=== PATIENT | male | born 1940 | race Caucasian/White ===

== ENCOUNTER 2022-08-22 20:16 | Inpatient (IN) | payer MEDICARE, OTHER ==
[~2022-08-22] VITALS: Ht 167.6 cm; Wt 78.5 kg
--- NOTE | 2022-08-22 20:20 | NUR ---
BIBRA39. ALTERED MENTAL STATUS X 30MIN MIXING PLACE SUPERVISOR. NARCAN 4MG NASALLY GIVEN EMS1. PT ON N/C 2LPM SATTING AT 97%. MIXING PLACE SUPERVISOR BS ACCUCHECK [address] SUPERVISOR IV ESTABLISHED BY EMS LFA #20G S/L. SAFETY MEASURES IN PLACE
--- NOTE | 2022-08-22 20:52 | NUR ---
RN UPDATED COURTNEY ([place]) [phone] DR. MEDINA SPEAKING TO COURTNEY
--- NOTE | 2022-08-22 21:13 | NUR ---
LFA #20G S/L BLOOD COLLECTED AND SENT TO LAB
--- NOTE | 2022-08-22 21:14 | NUR ---
PT TAKEN TO CT VIA SV[facility]
--- NOTE | 2022-08-22 21:24 | NUR ---
PT RETURNED TO ER BED [address]
[2022-08-22 21:31] LABS: BASOPHILS # (AUTO) 0.1 K/uL (0.0-0.2); BASOPHILS % (AUTO) 0.9 % (0.0-2.0); EOSINOPHILS % (AUTO) 0.5 % (0.0-6.0); HEMATOCRIT 38 % (39-51); HEMOGLOBIN 12.3 g/dL (13.5-17.5); LYMPHOCYTES # (AUTO) 0.5 K/uL (0.8-4.8); LYMPHOCYTES % (AUTO) 4.2 % (20.0-44.0); MEAN CORPUSCULAR HGB CONC 32 g/dl (31.0-36.0); MEAN CORPUSCULAR VOLUME 95 fL (80-96); MONOCYTES # (AUTO) 1.3 K/uL (0.1-1.30); MONOCYTES % (AUTO) 10.3 % (2.0-12.0); NEUTROPHILS # (AUTO) 10.4 K/uL (1.8-8.9); NEUTROPHILS % (AUTO) 84.1 % (43.0-81.0); RED BLOOD CELL COUNT(AUTO) 4.06 MIL/uL (4.5-6.0); WHITE BLOOD COUNT (AUTO) 12.3 K/uL (4.3-11.0)
--- NOTE | 2022-08-22 21:32 | NUR ---
POC BS ACCUCHECK 41 ;DR ZULEIKA HATFIELD AWARE
[2022-08-22] MEDS ORDERED: ONDANSETRON HCL/PF 4 MG/2 ML VIAL ONE (21:35)
[2022-08-22 21:36] LABS: SERUM AMMONIA 25 umol/L (11-32)
[2022-08-22 21:40] LABS: ALANINE AMINOTRANSFERASE 39 U/L (12-78); ALBUMIN 2.2 g/dL (3.4-5.0); ALKALINE PHOSPHATASE 142 U/L (46-116); ASPARTATE AMINOTRANSFERASE 63 U/L (15-37); BILIRUBIN,DIRECT 0.2 mg/dL (0.0-0.2); BILIRUBIN,TOTAL 0.4 mg/dL (0.2-1.0); CALCIUM, SERUM 7.6 mg/dL (8.5-10.1); CARBON DIOXIDE 30 mmol/L (21-32); CHLORIDE 100 mmol/L (98-107); CREATININE 4.3 mg/dL (0.6-1.3); POTASSIUM 4.6 mmol/L (3.5-5.1); SODIUM SERUM 132 mmol/L (136-145); TOTAL PROTEIN, SERUM 5.6 g/dL (6.4-8.2); UREA NITROGEN, BLOOD 52 mg/dL (7-18)
[2022-08-22 21:43] LABS: PLATELET COUNT (AUTO) 50 K/uL (150-450)
--- NOTE | 2022-08-22 21:43 | NUR ---
PLT 50,000; DR ZULEIKA HATFIELD AWARE
[2022-08-22 21:45] LABS: ACETAMINOPHEN < 10 ug/ml (10-30); ALCOHOL, BLOOD < 3 mg/dL (0-0)
--- NOTE | 2022-08-22 21:47 | NUR ---
VERONICA GRANDDAUGHTER [phone]
[2022-08-22 21:48] LABS: THYROID STIMULATING HORMONE 3.257 uIU/mL (0.358-3.74)
[2022-08-22 21:56] LABS: GLUCOSE 44 mg/dL (74-106)
[2022-08-22] MEDS ORDERED: DEXTROSE 50%-WATER 50 ML DISP.SYRIN ONE (21:57)
[2022-08-22] MEDS ORDERED: DEXTROSE 50%-WATER 50 ML DISP.SYRIN IVP ONE (22:00)
[2022-08-22] MEDS ORDERED: ONDANSETRON HCL/PF - ER 4 MG/2 ML VIAL IV ONE (22:00)
--- NOTE | 2022-08-22 22:04 | NUR ---
EMT AT PT'S BEDSIDE FOR EKG COVID ANTIGEN SWAB COLLECTED AND SENT TO LAB
[2022-08-22] MEDS: BLOOD SUGAR DIAGNOSTIC 1 EACH STRIP IN SCH (22:32)
--- NOTE | 2022-08-22 22:42 | NUR ---
dtr ikn waiting room ITZEL [phone]
--- NOTE | 2022-08-22 22:45 | NUR ---
DR. JADA HATFIELD AT PT'S BEDSIDE FOR EVAL
[2022-08-22] MEDS ORDERED: FUROSEMIDE 40 MG/4 ML VIAL ONE (22:55)
[2022-08-22] MEDS ORDERED: MORPHINE SULFATE INJ 2 MG/ML DISP.SYRIN IV PRN (23:00)
[2022-08-22] MEDS ORDERED: FUROSEMIDE 40 MG/4 ML VIAL IV ONE (23:00)
[2022-08-22] MEDS ORDERED: DEXTROSE 50%-WATER 50 ML DISP.SYRIN IV PRN (23:00)
[2022-08-22] MEDS ORDERED: hydrALAZINE HCL IV 20 MG VIAL IV PRN (23:00)
[2022-08-22] MEDS ORDERED: ONDANSETRON HCL/PF 4 MG/2 ML VIAL IVP PRN (23:00)
--- NOTE | 2022-08-22 23:05 | NUR ---
COVID SWAB SENT TO LAB
--- NOTE | 2022-08-22 23:26 | NUR ---
ATTEMPTED TO INSERT F/C 16, 14, 5FR WITH NO SUCCESS. PT INCONTINENT. NOT ABLE TO COLLECT URINE AT THIS TIME.
--- NOTE | 2022-08-22 23:27 | NUR ---
US TECH AT PT'S BEDSIDE
[2022-08-22 23:48] LABS: LYMPHOCYTES % (MANUAL) 6 % (16-48); NEUTROPHILS % (MANUAL) 80 (42-76)
[2022-08-22 23:49] LABS: BAND % (MANUAL) 4 % (0.0-5.0); BASOPHILS % (MANUAL) 1 % (0.0-2.0); EOSINOPHILS % (MANUAL) 1 % (0-4)
[2022-08-22 23:51] LABS: MONOCYTES % (MANUAL) 8 % (0-11.0)
--- NOTE | 2022-08-23 00:25 | NUR ---
RT AT PT'S BEDSIDE
--- NOTE | 2022-08-23 00:27 | NUR ---
BED 114-2
--- NOTE | 2022-08-23 00:45 | NUR ---
RN NOTES STARTED 1 BAG OF PRBC ORDERED. INITIAL VITAL SIGNS TAKEN AND NOTED TO BE WNL. INFUSED PER PROTOCOL. WILL CONTINUE TO MONITOR AND ASSESS FOR ANY BLOOD TRANSFUSION REACTION AND ADDRESS ACCORDINGLY. MOTEL FRONT DESK CLERK WELL AWARE. Addendum: 08/23/22 at 0441 by ALDA BLEVINS RN PLS DISREGARD ; WRONG PT
--- NOTE | 2022-08-23 00:47 | NUR ---
AWAITING TO GIVE REPORT TO [facility]
--- NOTE | 2022-08-23 00:48 | NUR ---
SPEECH LANG PATH AT PT'S BEDSIDE
--- NOTE | 2022-08-23 01:17 | NUR ---
RN NOTES RECEIVED ER ADMISSION REPORT FROM NINO WOODSON. ALL PERTINENT ADMISSION INFO REGARDING PT NOTED. WILL WAIT FOR PT TO BE TRANSFERRED TO UNIT AND ADDRESS NEEDS ACCORDINGLY. CERTIFIED FORKLIFT OPERATOR MADE AWARE.
--- NOTE | 2022-08-23 01:39 | NUR ---
COVID ANTIGEN SWAB COLLECTED AND SENT TO LAB
--- NOTE | 2022-08-23 01:56 | NUR ---
PT TRANSFERRED TO [facility] VIA ACLS PROTOCOL. VSS. ALL BELONGINGS WITH PT.
[2022-08-23 02:00] VITALS: BP 100/48
--- NOTE | 2022-08-23 02:00 | NUR ---
RN NOTES RECEIVED PT FROM ER VIA SVEN ACCOMPANIED BY 2 ER STAFF AND TRANSFERRED TO BED VIA 2-3 PERSON ASSIST. PT IS A/OX4; ON 2L OF O2 VIA NC RESPIRATIONS EVEN AND UNLABORED. COMPREHENSIVE PHYSICAL ASSESSMENT AND PATIENT CARE DONE. CALL LIGHT WITHIN REACH, SAFETY MEASURES AND ISOLATION PRECAUTION IN PLACE, WILL CONTINUE MONITOR AND ASSESS THROUGHOUT THE SHIFT. WILL CARRY OUT MD ORDERS ACCORDINGLY. BUFFING WHEEL FORMER MACHINE MADE AWARE.
[2022-08-23] MEDS ORDERED: CEFEPIME 1 GM in IV D5W 50 ML IV ONE (02:30)
--- NOTE | 2022-08-23 02:45 | NUR ---
0245 Critical procalcitonin result 2.[address] Obrien with no order.
--- NOTE | 2022-08-23 03:00 | NUR ---
RN NOTES RECEIVED CALL FROM ITZEL [phone] TO ADD HER CONTACT LIST OF PT, ADMITTING NOTIFIED AND UPDATED. STATUS UPDATEGIVEN TO ITZEL REG PATIENT. SHE'S REQUESTING TO GIVE THEM A CALL FOR ANY SIGNIFICANT UPDATES ABOUTPT AND TO NOTIFY THEM FOR ANY NEW MEDICATION PRIOR ADMINISTRATION. RN ACKNOWLEDGED, WILL ENDORSE TO SUCCEEDING SHIFTS.
[2022-08-23] MEDS ORDERED: CEFEPIME 1 GM VIAL ONE (03:25)
[2022-08-23 04:00] VITALS: BP 108/62
--- NOTE | 2022-08-23 04:00 | NUR ---
RN NOTES INFORMED SWETA HATFIELD (DR. ELIAS) TROPONIN LEVEL 2177, PREVIOUSLY AT 2089. MD ACKNOWLEDGED. NO NEW ORDERS. WILL CONTINUE TO ASSESS AND MONITOR.
--- NOTE | 2022-08-23 06:34 | NUR ---
RN CLOSING NOTE: PATIENT REMAINS IN ROOM IN NO SIGNS OF RESPIRATORY DISTRESS, PATIENT STILL ON 2L OF 02 NC; TOLERATING WELL SATURATING @ >95% SP02. SAFETY MEASURES IMPLEMENTED, BED IN LOWEST POSITION, LOCKED, SIDE RAILS UP, CALL LIGHT WITHIN REACH. ALL NEEDS AND ORDERS ADDRESSED DURING THE SHIFT. IV ACCESS MAINTAINED INTACT, SECURED AND FLUSHING WELL. ALL DUE MEDS GIVEN ORDERED & SCHEDULED ; PATIENT TOLERATED WELL. PATIENT KEPT CLEAN AND COMFORTABLE WITHIN THE SHIFT. PATIENT ENDORSED TO INCOMING SHIFT RN WITH STABLE VITAL SIGN AND FOR CONTINUITY OF CARE. Addendum: 08/23/22 at 0653 by ALDA BLEVINS RN ORDER SECURED FOR COVID PCR TEST FROM SWETA HATFIELD PER PT'S FAMILY REQUEST
[2022-08-23 06:47] LABS: BASOPHILS % (AUTO) 0.2 % (0.0-2.0); EOSINOPHILS % (AUTO) 0.2 % (0.0-6.0); HEMATOCRIT 38 % (39-51); HEMOGLOBIN 12.2 g/dL (13.5-17.5); LYMPHOCYTES # (AUTO) 0.3 K/uL (0.8-4.8); LYMPHOCYTES % (AUTO) 2.5 % (20.0-44.0); MEAN CORPUSCULAR HGB CONC 32 g/dl (31.0-36.0); MEAN CORPUSCULAR VOLUME 95 fL (80-96); MONOCYTES # (AUTO) 0.8 K/uL (0.1-1.30); MONOCYTES % (AUTO) 7.5 % (2.0-12.0); NEUTROPHILS % (AUTO) 89.6 % (43.0-81.0); PLATELET COUNT (AUTO) 92 K/uL (150-450); RED BLOOD CELL COUNT(AUTO) 3.94 MIL/uL (4.5-6.0); WHITE BLOOD COUNT (AUTO) 11.2 K/uL (4.3-11.0)
--- NOTE | 2022-08-23 07:00 | NUR ---
RN OPENING NOTE: PATIENT IN BED, AOX1, COMORAN SPEAKING, CAN UNDERSTAND AFGHAN, ABLE TO MAKE NEEDS KNOWN. NO SIGNS OF RESPIRATORY DISTRESS, PATIENT BREATHING ON 2L OF 02 NC; TOLERATING WELL SATURATING 95% SP02. ALL SAFETY MEASURES IMPLEMENTED, BED IN LOWEST POSITION, LOCKED, SIDE RAILS UP, CALL LIGHT WITHIN REACH. IV ACCESS LFA #20G FLUSHED AND INTACT, SECURED. WILL CONTINUE CARE THROUGHOUT SHIFT.
[2022-08-23] MEDS: BLOOD SUGAR DIAGNOSTIC 1 EACH STRIP IN SCH ×4 (07:36→21:43)
[2022-08-23 08:00] VITALS: BP 95/47
[2022-08-23 08:07] LABS: ALANINE AMINOTRANSFERASE 34 U/L (12-78); ALKALINE PHOSPHATASE 118 U/L (46-116); ASPARTATE AMINOTRANSFERASE 53 U/L (15-37); BILIRUBIN,TOTAL 0.4 mg/dL (0.2-1.0); CALCIUM, SERUM 7.4 mg/dL (8.5-10.1); CARBON DIOXIDE 27 mmol/L (21-32); CHLORIDE 100 mmol/L (98-107); CREATININE 4.4 mg/dL (0.6-1.3); GLUCOSE 84 mg/dL (74-106); MAGNESIUM 2.3 mg/dL (1.8-2.4); PHOSPHORUS 4.9 mg/dL (2.5-4.9); POTASSIUM 4.9 mmol/L (3.5-5.1); SODIUM SERUM 133 mmol/L (136-145); TOTAL PROTEIN, SERUM 5.2 g/dL (6.4-8.2); UREA NITROGEN, BLOOD 53 mg/dL (7-18)
[2022-08-23] MEDS: INSULIN REGULAR, HUMAN 100 UNIT/ML 3 ML VIAL SQ PRN ×3 (08:08→21:43)
[2022-08-23] MEDS ORDERED: SPIR25TA6 PO (08:24)
[2022-08-23] MEDS ORDERED: GLIP5TAB13 PO (08:24)
[2022-08-23] MEDS ORDERED: IVAB5TAB PO (08:24)
[2022-08-23] MEDS ORDERED: FOLI0.8C PO (08:24)
[2022-08-23] MEDS ORDERED: APIX2.5T PO (08:24)
[2022-08-23] MEDS ORDERED: SACU1TAB PO (08:24)
[2022-08-23] MEDS ORDERED: METO25TA4 PO (08:24)
[2022-08-23] MEDS ORDERED: ROSU10TA29 PO (08:24)
[2022-08-23] MEDS ORDERED: MIDO10TA PO (08:24)
[2022-08-23] MEDS ORDERED: CINA30TA6 PO (08:24)
[2022-08-23] MEDS ORDERED: VITA1TAB98 PO (08:24)
--- NOTE | 2022-08-23 08:53 | NUR ---
RN NOTE PER RONALD, MED RECON WILL BE COMPLETED BY NINO WHITE.
[2022-08-23] MEDS ORDERED: FUROSEMIDE 40 MG/4 ML VIAL IV SCH (09:00)
[2022-08-23] MEDS ORDERED: APIXABAN 5 MG TABLET PO SCH (09:00)
[2022-08-23 10:04] LABS: LYMPHOCYTES % (MANUAL) 2 % (16-48); MONOCYTES % (MANUAL) 3 % (0-11.0); NEUTROPHILS % (MANUAL) 95 (42-76)
--- NOTE | 2022-08-23 11:27 | NUR ---
RN NOTE PATIENT'S DAUGHTER RONDA WILL ASK PATIENT FAMILY MEMBER WILL BRING IN MEDICATION FROM HOME COVLANOR 5MG
[2022-08-23 12:00] VITALS: BP 93/47
[2022-08-23] MEDS: DEXAMETHASONE SOD PHOSPHATE 10 MG/ML VIAL IV SCH (12:27)
[2022-08-23] MEDS: glipiZIDE 5 MG TABLET PO SCH ×2 (12:28→17:00)
[2022-08-23] MEDS: SACUBITRIL/VALSARTAN 1 EACH TABLET PO SCH ×2 (12:28→17:00)
[2022-08-23] MEDS: CINACALCET HCL 30 MG TABLET PO SCH (12:28)
[2022-08-23] MEDS: ATORVASTATIN 10 MG TABLET PO SCH (12:28)
[2022-08-23] MEDS: SPIRONOLACTONE 25 MG TABLET PO SCH (12:28)
[2022-08-23] MEDS ORDERED: MIDODRINE HCL (5MG) 5 MG TABLET PO ONE (15:30)
[2022-08-23 16:00] VITALS: BP 93/59
--- NOTE | 2022-08-23 16:46 | NUR ---
RN NOTE HEMODIALYSIS CONSENT OBTAINED AND PLACE IN CHART. HD BEGAN AT 1445 AND COMPLETED AT 1645, 0 LITERS REMOVED. PER HD NURSE NINO ROSS, ENDORSE TO [employer] CREW BOSS TO HOLD ALL BP MEDS UNTIL AFTER HEMODIALYSIS IS COMPLETED ON 08/24/22, EXCEPT FOR MIDODRINE 10MG AT 0600. MD IS AWARE PATIENT HAD LOW BLOOD PRESSURE THROUGHOUT SHIFT AND DURING DIALYSIS.
[2022-08-23] MEDS ORDERED: MIDODRINE HCL (5MG) 5 MG TABLET PO SCH (17:00)
--- NOTE | 2022-08-23 17:12 | NUR ---
RN NOTE NOTIFIED NUTRITION THAT PATIENT DOES NOT HAVE TEETH OR DENTURES, WILL CHANGE DIET TO MECHANICAL SOFT CCHO.
[2022-08-23] MEDS: IVABRADINE HCL PO SCH (17:47)
[2022-08-23] MEDS: APIXABAN 2.5 MG TABLET PO SCH (17:49)
--- NOTE | 2022-08-23 19:00 | NUR ---
RN CLOSING NOTE: PATIENT IN BED, AOX2, ANDORRAN SPEAKING, CAN UNDERSTAND MACEDONIAN, ABLE TO MAKE NEEDS KNOWN. NO SIGNS OF RESPIRATORY DISTRESS, PATIENT BREATHING ON 2L OF 02 ON NC; TOLERATING WELL SATURATING 98% SP02. ALL SAFETY MEASURES IMPLEMENTED, BED IN LOWEST POSITION, LOCKED, SIDE RAILS UP, CALL LIGHT WITHIN REACH. IV ACCESS LFA #20G FLUSHED AND INTACT, SECURED. WILL ENDORSE CONTINUITY OF CARE TO PLANT ENGINEERING MANAGER NURSE.
--- NOTE | 2022-08-23 19:10 | NUR ---
RN NOTES RECEIVED PT FOR CONTINUITY OF CARE. PATIENT A/OX3-4 KENYAN SPEAKING IN NO S/SX OF ACUTE DISTRESS AT THIS TIME; CURRENTLY ON 2L OF O2 VIA NC; WITH 02 SAT >95% AT THIS TIME. WITH IV ACCESS ON L FA#20 PATENT, INTACT AND FLUSHING WELL. ENSURE SAFETY MEASURES WITHIN THE SHIFT. PATIENT BED ALARM IS ON. HEAD OF BED ELEVATED. BED IS LOCKED, IN LOWEST POSITION AND SIDE RAILS UP. CALL LIGHT WITHIN REACH OF THE PATIENT. APPLICABLE ISOLATION PRECAUTIONS IN PLACE. WILL CONTINUE TO MONITOR AND REASSESS FOR ANY CHANGES AND WILL CARRY OUT ANY ONGOING AND ACTIVE MD ORDER.
[2022-08-23 20:00] VITALS: BP 91/59
[2022-08-23] MEDS: MIDODRINE HCL (5MG) 5 MG TABLET PO SCH (21:37)
[2022-08-24] VITALS: BP 91/40
[2022-08-24] MEDS ORDERED: CEFEPIME 1 GM in IV D5W 50 ML IV SCH (03:00)
[2022-08-24 04:00] VITALS: BP 93/49
[2022-08-24] MEDS: MIDODRINE HCL (5MG) 5 MG TABLET PO SCH ×3 (05:50→21:31)
--- NOTE | 2022-08-24 06:45 | NUR ---
RN CLOSING NOTE: PATIENT REMAINS IN ROOM IN NO SIGNS OF RESPIRATORY DISTRESS, PATIENT STILL ON 2L OF 02 NC; TOLERATING WELL SATURATING @ >95% SP02. SAFETY MEASURES IMPLEMENTED, BED IN LOWEST POSITION, LOCKED, SIDE RAILS UP, CALL LIGHT WITHIN REACH. ALL NEEDS AND ORDERS ADDRESSED DURING THE SHIFT. IV ACCESS MAINTAINED INTACT, SECURED AND FLUSHING WELL. ALL DUE MEDS GIVEN ORDERED & SCHEDULED ; PATIENT TOLERATED WELL. PATIENT KEPT CLEAN AND COMFORTABLE WITHIN THE SHIFT. PATIENT ENDORSED TO INCOMING SHIFT RN WITH STABLE VITAL SIGN AND FOR CONTINUITY OF CARE.
[2022-08-24 06:49] LABS: BASOPHILS % (AUTO) 0.3 % (0.0-2.0); HEMATOCRIT 36 % (39-51); HEMOGLOBIN 11.6 g/dL (13.5-17.5); LYMPHOCYTES # (AUTO) 0.3 K/uL (0.8-4.8); LYMPHOCYTES % (AUTO) 2.9 % (20.0-44.0); MEAN CORPUSCULAR HGB CONC 33 g/dl (31.0-36.0); MEAN CORPUSCULAR VOLUME 95 fL (80-96); MONOCYTES # (AUTO) 0.6 K/uL (0.1-1.30); NEUTROPHILS # (AUTO) 10.9 K/uL (1.8-8.9); NEUTROPHILS % (AUTO) 91.8 % (43.0-81.0); PLATELET COUNT (AUTO) 153 K/uL (150-450); RED BLOOD CELL COUNT(AUTO) 3.79 MIL/uL (4.5-6.0); WHITE BLOOD COUNT (AUTO) 11.9 K/uL (4.3-11.0)
[2022-08-24 07:20] LABS: ALANINE AMINOTRANSFERASE 37 U/L (12-78); ALKALINE PHOSPHATASE 111 U/L (46-116); ASPARTATE AMINOTRANSFERASE 52 U/L (15-37); BILIRUBIN,TOTAL 0.4 mg/dL (0.2-1.0); CALCIUM, SERUM 7.5 mg/dL (8.5-10.1); CARBON DIOXIDE 29 mmol/L (21-32); CHLORIDE 99 mmol/L (98-107); CREATININE 4.3 mg/dL (0.6-1.3); GLUCOSE 68 mg/dL (74-106); MAGNESIUM 2.2 mg/dL (1.8-2.4); PHOSPHORUS 5.5 mg/dL (2.5-4.9); POTASSIUM 5.6 mmol/L (3.5-5.1); SODIUM SERUM 133 mmol/L (136-145); TOTAL PROTEIN, SERUM 5.4 g/dL (6.4-8.2); UREA NITROGEN, BLOOD 48 mg/dL (7-18)
[2022-08-24 08:00] VITALS: BP 83/45
[2022-08-24] MEDS: BLOOD SUGAR DIAGNOSTIC 1 EACH STRIP IN SCH ×4 (08:20→21:31)
[2022-08-24] MEDS: DEXAMETHASONE SOD PHOSPHATE 10 MG/ML VIAL IV SCH (08:45)
[2022-08-24] MEDS: CINACALCET HCL 30 MG TABLET PO SCH (08:45)
[2022-08-24] MEDS: ATORVASTATIN 10 MG TABLET PO SCH (08:45)
[2022-08-24] MEDS: glipiZIDE 5 MG TABLET PO SCH ×2 (08:45→16:47)
[2022-08-24] MEDS: SPIRONOLACTONE 25 MG TABLET PO SCH (08:45)
[2022-08-24] MEDS: IVABRADINE HCL PO SCH ×2 (08:46→16:50)
[2022-08-24] MEDS: SACUBITRIL/VALSARTAN 1 EACH TABLET PO SCH ×2 (08:46→16:48)
[2022-08-24] MEDS: APIXABAN 2.5 MG TABLET PO SCH ×2 (08:48→17:44)
[2022-08-24 12:00] VITALS: BP 84/43
[2022-08-24 16:00] VITALS: BP 87/53
[2022-08-24] MEDS: INSULIN REGULAR, HUMAN 100 UNIT/ML 3 ML VIAL SQ PRN ×2 (17:47→21:34)
--- NOTE | 2022-08-24 19:00 | NUR ---
RN CLOSING NOTE: PATIENT REMAINS IN ROOM IN NO SIGNS OF RESPIRATORY DISTRESS, PATIENT STILL ON 2L OF 02 NC; TOLERATING WELL SATURATING @ >95% SP02. SAFETY MEASURES IMPLEMENTED, BED IN LOWEST POSITION, LOCKED, SIDE RAILS UP, CALL LIGHT WITHIN REACH. ALL NEEDS AND ORDERS ADDRESSED DURING THE SHIFT. PATIENT'S DAUGHTERS BROUGHT BREAKFAST AND LUNCH FOR THE PATINET HE HAD LOW APPETITE AND ATE TH E50% OF IT. IV ACCESS MAINTAINED INTACT, SECURED AND FLUSHING WELL. ALL DUE MEDS GIVEN ORDERED & SCHEDULED ; PATIENT TOLERATED WELL. PATIENT KEPT CLEAN AND COMFORTABLE WITHIN THE SHIFT. PATIENT ENDORSED TO THE DIRECTOR INPATIENT HEADACHE PROGRAM NURSE WITH STABLE VITAL SIGN AND FOR CONTINUITY OF CARE.
--- NOTE | 2022-08-24 19:18 | NUR ---
RN NOTES RECEIVED PT FOR CONTINUITY OF CARE. PATIENT A/OX3-4 CHINESE SPEAKING IN NO S/SX OF ACUTE DISTRESS AT THIS TIME; CURRENTLY ON 2L OF O2 VIA NC; WITH 02 SAT >95% AT THIS TIME. WITH IV ACCESS ON L FA#20 PATENT, INTACT AND FLUSHING WELL. ON ISO PREC FOR COVID. WILL ENSURE SAFETY MEASURES WITHIN THE SHIFT. PATIENT BED ALARM IS ON. HEAD OF BED ELEVATED. BED IS LOCKED, IN LOWEST POSITION AND SIDE RAILS UP. CALL LIGHT WITHIN REACH OF THE PATIENT. WILL CONTINUE TO MONITOR AND REASSESS FOR ANY CHANGES AND WILL CARRY OUT ANY ONGOING AND ACTIVE MD ORDER.
[2022-08-24 20:00] VITALS: BP 92/44
--- NOTE | 2022-08-24 21:15 | NUR ---
RN NOTES HD RN AT BEDSIDE FOR PT HD SESSION. Addendum: 08/25/22 at 0021 by ALDA BLEVINS RN @[phone]; HD DONE, NO OUTPUT ONLY CLEARANCE DONE
[2022-08-25] VITALS: BP 90/50
[2022-08-25] MEDS: CEFEPIME 2 GM in IV D5W 100 ML IV SCH (02:04)
[2022-08-25 04:00] VITALS: BP 91/47
--- NOTE | 2022-08-25 04:00 | NUR ---
RN NOTES PATIENT REMAINED TO BE IN NO SIGNS OF ACUTE RESPIRATORY DISTRESS , SAFE ENVIRONMENT MAINTAINED FOR PT. AM PATIENT CARE ASSISTANCE RENDERED. WILL CONTINUE TO MONITOR AND REASSESS FOR ANY CHANGES THROUGHOUT THE SHIFT.
[2022-08-25] MEDS: MIDODRINE HCL (5MG) 5 MG TABLET PO SCH ×3 (05:07→17:09)
[2022-08-25 05:58] LABS: BASOPHILS % (AUTO) 0.1 % (0.0-2.0); HEMATOCRIT 35 % (39-51); HEMOGLOBIN 11.7 g/dL (13.5-17.5); LYMPHOCYTES # (AUTO) 0.3 K/uL (0.8-4.8); LYMPHOCYTES % (AUTO) 3.2 % (20.0-44.0); MEAN CORPUSCULAR HGB CONC 33 g/dl (31.0-36.0); MEAN CORPUSCULAR VOLUME 94 fL (80-96); MONOCYTES # (AUTO) 0.4 K/uL (0.1-1.30); MONOCYTES % (AUTO) 3.9 % (2.0-12.0); NEUTROPHILS # (AUTO) 8.7 K/uL (1.8-8.9); NEUTROPHILS % (AUTO) 92.8 % (43.0-81.0); PLATELET COUNT (AUTO) 138 K/uL (150-450); RED BLOOD CELL COUNT(AUTO) 3.74 MIL/uL (4.5-6.0); WHITE BLOOD COUNT (AUTO) 9.4 K/uL (4.3-11.0)
[2022-08-25 06:05] LABS: CALCIUM, SERUM 7.1 mg/dL (8.5-10.1); CARBON DIOXIDE 25 mmol/L (21-32); CHLORIDE 99 mmol/L (98-107); CREATININE 3.8 mg/dL (0.6-1.3); GLUCOSE 150 mg/dL (74-106); MAGNESIUM 2.1 mg/dL (1.8-2.4); PHOSPHORUS 5.8 mg/dL (2.5-4.9); POTASSIUM 5.3 mmol/L (3.5-5.1); SODIUM SERUM 133 mmol/L (136-145); UREA NITROGEN, BLOOD 43 mg/dL (7-18)
--- NOTE | 2022-08-25 06:37 | NUR ---
RN CLOSING NOTE: PATIENT REMAINS IN ROOM IN NO SIGNS OF RESPIRATORY DISTRESS, PATIENT NOW ON 1L OF 02 NC; TOLERATING WELL SATURATING @ >95% SP02. SAFETY MEASURES IMPLEMENTED, BED IN LOWEST POSITION, LOCKED, SIDE RAILS UP, CALL LIGHT WITHIN REACH. ALL NEEDS AND ORDERS ADDRESSED DURING THE SHIFT. IV ACCESS MAINTAINED INTACT, SECURED AND FLUSHING WELL. ALL DUE MEDS GIVEN ORDERED & SCHEDULED ; PATIENT TOLERATED WELL. PATIENT KEPT CLEAN AND COMFORTABLE WITHIN THE SHIFT. PATIENT ENDORSED TO INCOMING SHIFT RN WITH STABLE VITAL SIGN AND FOR CONTINUITY OF CARE.
[2022-08-25 08:00] VITALS: BP 89/53
[2022-08-25] MEDS: BLOOD SUGAR DIAGNOSTIC 1 EACH STRIP IN SCH ×4 (08:15→21:42)
--- NOTE | 2022-08-25 08:45 | NUR ---
RN NOTE DR. HINKLE NOTIFIED IN PERSON REGARDING THE PATIENT'S LOW BLOOD PRESSURE 89/53 HE ORDERED TO HOLD THE BP MEDICATIONS. I HELD THE VALSARTAN MEDICATION
[2022-08-25] MEDS: CINACALCET HCL 30 MG TABLET PO SCH (08:51)
[2022-08-25] MEDS: ATORVASTATIN 10 MG TABLET PO SCH (08:51)
[2022-08-25] MEDS: glipiZIDE 5 MG TABLET PO SCH ×2 (08:51→16:29)
[2022-08-25] MEDS: SPIRONOLACTONE 25 MG TABLET PO SCH (08:52)
[2022-08-25] MEDS: DEXAMETHASONE SOD PHOSPHATE 10 MG/ML VIAL IV SCH (08:52)
[2022-08-25] MEDS: APIXABAN 2.5 MG TABLET PO SCH ×2 (08:56→16:28)
[2022-08-25] MEDS: IVABRADINE HCL PO SCH ×2 (09:00→16:23)
[2022-08-25] MEDS: SACUBITRIL/VALSARTAN 1 EACH TABLET PO SCH ×2 (09:22→16:29)
[2022-08-25] MEDS: INSULIN REGULAR, HUMAN 100 UNIT/ML 3 ML VIAL SQ PRN ×4 (09:30→21:43)
[2022-08-25 12:00] VITALS: BP 85/50
[2022-08-25 16:00] VITALS: BP 82/47
--- NOTE | 2022-08-25 17:10 | NUR ---
RN NOTE TOMASA IS GOING TO HAVE A DIALYSIS NOW, BUT HIS BP IS LOW 89/56 DIALYSISI NURSE ASKED ME TO GIVE HIM 10 MG OF MIDODRINE TO BOOST THE BP. MEDICATION IS GIVEN.
--- NOTE | 2022-08-25 19:00 | NUR ---
RN CLOSING NOTE: PATIENT REMAINS IN ROOM IN NO SIGNS OF RESPIRATORY DISTRESS, PATIENT IS ON ROM AIR TRIAL GOAL IS 90-95% SATURATING 91 TO 95% SP02. PATIENT'S BLOOD PRESSURE LOW WHOLE DAY AROUND 89/53 DR. HINKLE WAS NOTIFIED IN THE MORNING AND HE ORDERED TO HOLD THE BP MEDICATIONS AND MONITOR THE PATIENT. PATIENT IS GETTING DIALYSIS NOW, MIDODRINE GIVEN BEFORE THE DIALYSIS TO BOOST THE BP. PATIENT HAS LOW APPETITE, HIS DAUGHTER AND SON BRINGS FOOD AND HE EATS ONLY 50% OF IT. PATIENT AMBULATED FOR TOILET WITH THE HELP OF THE RN OR SHOT COAT TENDER. SAFETY MEASURES IMPLEMENTED, BED IN LOWEST POSITION, LOCKED, SIDE RAILS UP, CALL LIGHT WITHIN REACH. ALL NEEDS AND ORDERS ADDRESSED DURING THE SHIFT. IV ACCESS MAINTAINED INTACT, SECURED AND FLUSHING WELL. ALL DUE MEDS GIVEN ORDERED & SCHEDULED ; PATIENT TOLERATED WELL. PATIENT KEPT CLEAN AND COMFORTABLE WITHIN THE SHIFT. PATIENT ENDORSED TO PULLMAN CAR REPAIRER RN WITH STABLE VITAL SIGN AND FOR CONTINUITY OF CARE.
--- NOTE | 2022-08-25 19:05 | NUR ---
RN NOTES RECEIVED PT FOR CONTINUITY OF CARE. PATIENT A/OX3-4 RWANDAN SPEAKING IN NO S/SX OF ACUTE DISTRESS AT THIS TIME; CURRENTLY ON 1L OF O2 VIA NC; WITH 02 SAT >95% AT THIS TIME. WITH IV ACCESS ON R FA#22 PATENT, INTACT AND FLUSHING WELL. ON ISO PREC FOR COVID. HD SESSION ONGOING. WILL ENSURE SAFETY MEASURES WITHIN THE SHIFT. PATIENT BED ALARM IS ON. HEAD OF BED ELEVATED. BED IS LOCKED, IN LOWEST POSITION AND SIDE RAILS UP. CALL LIGHT WITHIN REACH OF THE PATIENT. WILL CONTINUE TO MONITOR AND REASSESS FOR ANY CHANGES AND WILL CARRY OUT ANY ONGOING AND ACTIVE MD ORDER.
--- NOTE | 2022-08-25 19:45 | NUR ---
RN NOTES HD DONE, 1L OUTPUT.
[2022-08-25 20:00] VITALS: BP 90/49
[2022-08-26] VITALS (7 sets, daily range): BP systolic 86–145; BP diastolic 43–68
--- NOTE | 2022-08-26 00:20 | NUR ---
RN NOTES PT'S BP RUNNING LOW; SBP <90, AUTOMATIC AND MANUAL DONE; BOTH <90SBP. NEXT SCHEDULE MIDODRINE 0600. PT IS IN NO DISTRESS. NOTIFIED ONCALL (DR. ELIAS) PROVIDED STATUS UPDATE. SECURED ORDER FOR ALBUMIN [id number]. RN ACKNOWLEDGED AND WILL CARRY OUT. ACID PATROLLER MADE AWARE.
[2022-08-26] MEDS ORDERED: ALBUMIN 25% 25 GM in PREMIX 1 EA IV SCH (00:30)
[2022-08-26] MEDS ORDERED: ALBUMIN 25% 100 ML IV ONE (01:43)
[2022-08-26] MEDS: ALBUMIN 25% 25 GM in PREMIX 1 EA IV SCH ×2 (02:02→02:19)
[2022-08-26] MEDS: CEFEPIME 2 GM in IV D5W 100 ML IV SCH (02:20)
[2022-08-26] MEDS: MIDODRINE HCL (5MG) 5 MG TABLET PO SCH ×3 (05:12→22:00)
[2022-08-26 06:12] LABS: HEMATOCRIT 38 % (39-51); HEMOGLOBIN 12.4 g/dL (13.5-17.5); LYMPHOCYTES # (AUTO) 0.4 K/uL (0.8-4.8); LYMPHOCYTES % (AUTO) 3.5 % (20.0-44.0); MEAN CORPUSCULAR HGB CONC 33 g/dl (31.0-36.0); MEAN CORPUSCULAR VOLUME 94 fL (80-96); MONOCYTES # (AUTO) 0.5 K/uL (0.1-1.30); MONOCYTES % (AUTO) 4.3 % (2.0-12.0); NEUTROPHILS # (AUTO) 11.5 K/uL (1.8-8.9); NEUTROPHILS % (AUTO) 92.2 % (43.0-81.0); PLATELET COUNT (AUTO) 158 K/uL (150-450); RED BLOOD CELL COUNT(AUTO) 4.01 MIL/uL (4.5-6.0); WHITE BLOOD COUNT (AUTO) 12.5 K/uL (4.3-11.0)
[2022-08-26 06:19] LABS: CALCIUM, SERUM 7.4 mg/dL (8.5-10.1); CARBON DIOXIDE 26 mmol/L (21-32); CHLORIDE 98 mmol/L (98-107); GLUCOSE 78 mg/dL (74-106); MAGNESIUM 2.2 mg/dL (1.8-2.4); PHOSPHORUS 5.6 mg/dL (2.5-4.9); POTASSIUM 5.5 mmol/L (3.5-5.1); SODIUM SERUM 134 mmol/L (136-145); UREA NITROGEN, BLOOD 43 mg/dL (7-18)
--- NOTE | 2022-08-26 06:46 | NUR ---
RN CLOSING NOTE: PATIENT REMAINS IN ROOM IN NO SIGNS OF RESPIRATORY DISTRESS, PATIENT NOW ON ROOM AIR; TOLERATING WELL SATURATING @ >95% SP02. SAFETY MEASURES IMPLEMENTED, BED IN LOWEST POSITION, LOCKED, SIDE RAILS UP, CALL LIGHT WITHIN REACH. ALL NEEDS AND ORDERS ADDRESSED DURING THE SHIFT. IV ACCESS MAINTAINED INTACT, SECURED AND FLUSHING WELL. HD DONE LAST NIGHT 1L OUTPUT. ALBUMIN GIVEN 25GMS 2DOSES GIVEN FOR BP SUPPORT.ALL DUE MEDS GIVEN ORDERED & SCHEDULED ; PATIENT TOLERATED WELL. PATIENT KEPT CLEAN AND COMFORTABLE WITHIN THE SHIFT. PATIENT ENDORSED TO INCOMING SHIFT RN WITH STABLE VITAL SIGN AND FOR CONTINUITY OF CARE.
[2022-08-26] MEDS: BLOOD SUGAR DIAGNOSTIC 1 EACH STRIP IN SCH ×4 (08:36→22:38)
[2022-08-26] MEDS: CINACALCET HCL 30 MG TABLET PO SCH (09:18)
[2022-08-26] MEDS: glipiZIDE 5 MG TABLET PO SCH ×2 (09:19→16:47)
[2022-08-26] MEDS: DEXAMETHASONE SOD PHOSPHATE 10 MG/ML VIAL IV SCH (09:19)
[2022-08-26] MEDS: SACUBITRIL/VALSARTAN 1 EACH TABLET PO SCH ×2 (09:19→16:48)
[2022-08-26] MEDS: ATORVASTATIN 10 MG TABLET PO SCH (09:19)
[2022-08-26] MEDS: IVABRADINE HCL PO SCH ×2 (09:34→16:48)
[2022-08-26] MEDS: APIXABAN 2.5 MG TABLET PO SCH ×2 (09:35→16:49)
--- NOTE | 2022-08-26 09:36 | NUR ---
RN OPENING NOTE: RECEIVED PATIENT IN BED AWAKE, ALERT AND VERBALLY RESPONSIVE, PATIENT IN ROOM AIR, TOLERATING WELL SATURATING @ >95% SP02., NO SOB NOTED, RESPIRATION EVEN AND UNLABORED, NOT IN DISTRESS, DENIES ANY PAIN, SAFETY MEASURES IMPLEMENTED, BED IN LOWEST POSITION, LOCKED, SIDE RAILS UP, CALL LIGHT WITHIN REACH. ALL NEEDS AND ORDERS ADDRESSED DURING THE SHIFT. IV ACCESS MAINTAINED PATENT AND INTACT, SECURED AND FLUSHING WELL. JEANNE SHUNT NOTED POSITIVE FOR BRUIT AND THRILL, DRESSING KEPT C/D/I. CALL LIGHT WITHIN REACH. WILL CONTINUE PLAN OF CARE. Addendum: 08/26/22 at 0941 by KERI POWERS RN NOTED ON TELE MONITORING WITH READING VPACED AFIB, DENIES ANY CHEST PAIN,OR DIZZINESS. Addendum: 08/26/22 at 1013 by KERI POWERS RN CORRECTION: RIGHT UPPER CHEST PERMACATH. DRESSING C/D/I.
--- NOTE | 2022-08-26 11:52 | NUR ---
ASSEMBLY MACHINE TOOL SETTER NOTES PATIENT DONE HD 1L REMOVED, PATIENT TOLERATED IT WELL, NO C/O OF DIZZINESS, SUGAR CHECK 77MG/DL, NO INSULIN COVERAGE GIVEN.
--- NOTE | 2022-08-26 18:25 | NUR ---
MANAGER VAN CLOSING NOTE: PATIENT IN BED AWAKE, TALKING TO DAUGHTER ON THE PHONE, ALERT AND VERBALLY RESPONSIVE, PATIENT IN ROOM AIR, TOLERATING , NO SOB NOTED, RESPIRATION EVEN AND UNLABORED, NOT IN DISTRESS, DENIES ANY PAIN, SAFETY MEASURES IMPLEMENTED, BED IN LOWEST POSITION, LOCKED, SIDE RAILS UP, CALL LIGHT WITHIN REACH. ALL NEEDS AND ORDERS ADDRESSED DURING THE SHIFT. MARIA DEL ROSARIO MIDLINE NOTED PATENT AND INTACT, FLUSHES WELL. RIGHT UPPER CHEST PERMACATH, NOTED C/D/I. PATIENT REFUSED INSULIN COVERAGE. ON TELE MONITORING WITH V PACED READING AFIB 61. BLE AND BUE EDEMA STILL NOTED. BUE DRESSING KEPT C/D/I. WILL ENDORSE TO NIGHT NURSE FOR ESTELLA.
--- NOTE | 2022-08-26 21:36 | NUR ---
HOUSEKEEPING LEAD OPENING NOTE PT RECEIVED IN BED, AWAKE, A&O X4, CALM, COOPERATIVE. PT ON RA WITH CURRENT O2SAT OF 94%; NO S/S OF RESP DISTRESS, NO SOB, NON-LABORED AND EQUAL BREATHING; NOTED TO HAVE PRODUCTIVE COUGH. PT ATTACHED TO EXTERNAL MONITOR, V-PACING WITH HR OF 63. MARIA DEL ROSARIO MIDLINE INTACT AND PATENT, FLUSHES EASILY WITH NO RESISTANCE, NO MEDS/FLUIDS INFUSING THROUGH IT. RIGHT UPPER CHEST PERMACATH DRESING C/D/I. BED IN LOWEST POSITION, CALL LIGHT WITHIN REACH, SIDE RAILS UP X3. WILL CONTINUE TO MONITOR THROUGHOUT THE NIGHT.
--- NOTE | 2022-08-26 22:38 | NUR ---
NINO MARSHALL SCHEDULED FOR 2199 HELD D/T BP OF 145/55, HR 63 AT 1999. Addendum: 08/27/22 at 0439 by PRINCESS MARIELLE ONEILL PT ALSO REFUSED INSULIN WITH 2200 BG OF 149 MG/DL.
[2022-08-27] VITALS: BP 113/50
[2022-08-27] MEDS: CEFEPIME 2 GM in IV D5W 100 ML IV SCH (03:26)
[2022-08-27 04:00] VITALS: BP 99/49
[2022-08-27] MEDS: MIDODRINE HCL (5MG) 5 MG TABLET PO SCH ×3 (06:03→21:46)
[2022-08-27 06:42] LABS: HEMATOCRIT 40 % (39-51); HEMOGLOBIN 12.7 g/dL (13.5-17.5); LYMPHOCYTES # (AUTO) 0.5 K/uL (0.8-4.8); LYMPHOCYTES % (AUTO) 3.2 % (20.0-44.0); MEAN CORPUSCULAR HGB CONC 32 g/dl (31.0-36.0); MEAN CORPUSCULAR VOLUME 94 fL (80-96); MONOCYTES # (AUTO) 0.7 K/uL (0.1-1.30); MONOCYTES % (AUTO) 4.1 % (2.0-12.0); NEUTROPHILS # (AUTO) 15.5 K/uL (1.8-8.9); NEUTROPHILS % (AUTO) 92.7 % (43.0-81.0); PLATELET COUNT (AUTO) 169 K/uL (150-450); RED BLOOD CELL COUNT(AUTO) 4.21 MIL/uL (4.5-6.0); WHITE BLOOD COUNT (AUTO) 16.7 K/uL (4.3-11.0)
--- NOTE | 2022-08-27 06:54 | NUR ---
SENSOR SPECIALIST CLOSING NOTE PT REMAINS IN BED, ASLEEP BUT EASILY AROUSABLE, A&O X4, CALM, COOPERATIVE. CONTINUES TO BE ON RA WITH O2SAT RANGING FROM 94%-95%; NO S/S OF RESP DISTRESS, NO SOB, NON-LABORED AND EQUAL BREATHING; CONTINUES TO HAVE PRODUCTIVE COUGH. ATTACHED TO EXTERNAL MONITOR, V-PACING WITH HR RANGING FROM 62-64. MARIA DEL ROSARIO MIDLINE INTACT AND PATENT, FLUSHES EASILY WITH NO RESISTANCE, NO MEDS/FLUIDS INFUSING THROUGH IT. RIGHT UPPER CHEST PERMACATH DRESING C/D/I. DRESSINGS CHANGED FOR SKIN TEARS ON ARMS. ALL DUE MEDS ADMINISTERED DURING THE NIGHT. BED IN LOWEST POSITION, CALL LIGHT WITHIN REACH, SIDE RAILS UP X3. WILL ENDORSE TO DAYSHIFT NURSE TO CONTINUE CARE.
[2022-08-27 07:04] LABS: CALCIUM, SERUM 7.1 mg/dL (8.5-10.1); CARBON DIOXIDE 26 mmol/L (21-32); CHLORIDE 100 mmol/L (98-107); GLUCOSE 166 mg/dL (74-106); MAGNESIUM 2.3 mg/dL (1.8-2.4); PHOSPHORUS 5.5 mg/dL (2.5-4.9); POTASSIUM 5.2 mmol/L (3.5-5.1); SODIUM SERUM 137 mmol/L (136-145); UREA NITROGEN, BLOOD 42 mg/dL (7-18)
--- NOTE | 2022-08-27 07:21 | NUR ---
RN OPEN NOTE PATIENT IN BED AWAKE, ALERT AND VERBALLY RESPONSIVE, PATIENT IN ROOM AIR, TOLERATING , NO SOB NOTED, RESPIRATION EVEN AND UNLABORED, NOT IN DISTRESS, DENIES ANY PAIN, SAFETY MEASURES IMPLEMENTED, BED IN LOWEST POSITION, LOCKED, SIDE RAILS UP, CALL LIGHT WITHIN REACH. . MARIA DEL ROSARIO MIDLINE NOTED PATENT AND INTACT, FLUSHES WELL. RIGHT UPPER CHEST PERMCATH, NOTED C/D/I. ON TELE MONITORING WITH V PACED READING AFIB 67. BLE AND BUE OPEN WOUNDS .WILL CONTINUE TO MONITOR AND FALLOW POC
[2022-08-27] MEDS: DEXILANT 60 MG PO SCH (07:30)
[2022-08-27] MEDS: BLOOD SUGAR DIAGNOSTIC 1 EACH STRIP IN SCH ×4 (07:38→21:59)
--- NOTE | 2022-08-27 07:38 | NUR ---
RN NOTE ACCUCHECK DONE , FBS 167 MG/DL . PATIENT REFUSED INSULIN
[2022-08-27 08:00] VITALS: BP 96/70
[2022-08-27] MEDS: ATORVASTATIN 10 MG TABLET PO SCH (08:13)
[2022-08-27] MEDS: DEXAMETHASONE SOD PHOSPHATE 10 MG/ML VIAL IV SCH (08:13)
[2022-08-27] MEDS: CINACALCET HCL 30 MG TABLET PO SCH (08:13)
[2022-08-27] MEDS: IVABRADINE HCL PO SCH ×2 (08:13→16:37)
[2022-08-27] MEDS: glipiZIDE 5 MG TABLET PO SCH ×2 (08:13→16:37)
--- NOTE | 2022-08-27 08:13 | NUR ---
WOUND CARE CONSULT: REVIEWED CHART, NURSING DOCUMENTATION AND PHOTOS WHICH INDICATE DRY SCAB TO LEFT LOWER LEG AND SKIN TEARS TO UPPER EXTREMITIES, PRESENT ON ADMISSION. RECOMMENDATIONS MADE FOR SKIN PROTECTION AND WOUND CARE. DISCUSSED WITH NURSING STAFF. MD IN AGREEMENT WITH PLAN OF CARE.
[2022-08-27] MEDS: SACUBITRIL/VALSARTAN 1 EACH TABLET PO SCH ×2 (08:14→16:37)
[2022-08-27] MEDS: APIXABAN 2.5 MG TABLET PO SCH ×2 (08:14→16:39)
[2022-08-27] MEDS ORDERED: Z GUARD REMEDY 4 OZ OINT TP PRN (08:30)
[2022-08-27 12:15] VITALS: BP 90/60
[2022-08-27 16:12] VITALS: BP 107/53
--- NOTE | 2022-08-27 17:09 | NUR ---
rn note chava blood sugar chacked at 1730 -167 mg/dl . patient refused insulin
--- NOTE | 2022-08-27 18:27 | NUR ---
RN CLOSING NOTE PATIENT IN BED AWAKE, ALERT, ORIENTED TIMES 4 AND VERBALLY RESPONSIVE, PATIENT IN ROOM AIR, TOLERATING WELL O2 SAT 97 % , NO SOB NOTED, RESPIRATION EVEN AND UNLABORED, NOT IN DISTRESS, DENIES ANY PAIN, SAFETY MEASURES IMPLEMENTED, BED IN LOWEST POSITION, LOCKED, SIDE RAILS UP, CALL LIGHT WITHIN REACH. ALL NEEDS AND ORDERS ADDRESSED DURING THE SHIFT. MARIA DEL ROSARIO MIDLINE PATENT AND INTACT, FLUSHES WELL. RIGHT UPPER CHEST PERMACATH, NOTED C/D/I. PATIENT REFUSED INSULIN COVERAGE. ON TELE MONITORING WITH V PACED READING AFIB 67. BLE AND BUE EDEMA PITTING +2. BUE DRESSING KEPT C/D/I. WILL ENDORSE TO NIGHT NURSE FOR ESTELLA.
[2022-08-27 20:00] VITALS: BP 128/62
[2022-08-27] MEDS: ACETAMINOPHEN 325 MG TABLET PO PRN (21:47)
--- NOTE | 2022-08-27 21:47 | NUR ---
RN NOTE PT REPORTS OF HAVING PAIN ON HIS LOWER LEGS. PT ADMINISTERED TYLENOL 650 MG. WILL MONITOR FOR EFFECTIVENESS.
[2022-08-27] MEDS: INSULIN REGULAR, HUMAN 100 UNIT/ML 3 ML VIAL SQ PRN (22:00)
--- NOTE | 2022-08-27 22:00 | NUR ---
RN NOTE 2200 BG 168 MG/DL; PT REFUSED INSULIN.
--- NOTE | 2022-08-27 23:55 | NUR ---
PROPERTY UTILIZATION MANAGER OPENING NOTE PT RECEIVED IN BED, AWAKE, A&O X4, CALM, COOPERATIVE. PT ON RA WITH CURRENT O2SAT OF 99%%; NOTED TO HAVE PRODUCTIVE COUGH; NO OTHER S/S OF RESP DISTRESS, NO SOB, NON-LABORED AND EQUAL BREATHING. PT ATTACHED TO EXTERNAL MONITOR, V-PACING WITH HR OF 70. MARIA DEL ROSARIO MIDLINE INTACT AND PATENT, FLUSHES EASILY WITH NO RESISTANCE, NO MEDS/FLUIDS INFUSING THROUGH IT. RIJ HD CATH DRESSING C/D/I. BED IN LOWEST POSITION, CALL LIGHT WITHIN REACH, SIDE RAILS UP X3. WILL CONTINUE TO MONITOR THROUGHOUT THE NIGHT.
[2022-08-28] VITALS: BP 126/78
[2022-08-28] MEDS: CEFEPIME 2 GM in IV D5W 100 ML IV SCH (02:15)
[2022-08-28 04:00] VITALS: BP 136/72
[2022-08-28] MEDS: MIDODRINE HCL (5MG) 5 MG TABLET PO SCH (05:17)
--- NOTE | 2022-08-28 06:14 | NUR ---
TIE MILL OPERATOR CLOSING NOTE PT REMAINS IN BED, AWAKE, A&O X4, CALM, COOPERATIVE. CONTINUES TO BE ON RA WITH O2SAT STABLE AT 99%; NO S/S OF RESP DISTRESS, NO SOB, NON-LABORED AND EQUAL BREATHING WITH PRODUCTIVE COUGH. ATTACHED TO EXTERNAL MONITOR, V-PACING WITH HR RANGING FROM 70-82. MARIA DEL ROSARIO MIDLINE INTACT AND PATENT, FLUSHES EASILY WITH NO RESISTANCE, NO MEDS/FLUIDS INFUSING THROUGH IT. RIGHT UPPER CHEST PERMACATH DRESSING C/D/I. . ALL DUE MEDS ADMINISTERED DURING THE NIGHT. BED IN LOWEST POSITION, CALL LIGHT WITHIN REACH, SIDE RAILS UP X3. WILL ENDORSE TO DAYSHIFT NURSE TO CONTINUE CARE.
--- NOTE | 2022-08-28 07:20 | NUR ---
DIRECTOR EXPORT OPENING NOTES: RECEIVED PATIENT IN BED, AWAKE, ALERT, ORIENTED X 4. NO RESPIRATORY DISTRESS NOTED AT THIS TIME. NO COUGH AND NO SOB NOTED, BREATHING EVEN AND UNLABORED. ON RA WITH OXYGEN SATURATION OF 98%. PATIENT HAS IV ACCESS ON RIGHT UPPER ARM MIDLINE, INTACT, PATENT, FLUSHES WELL, IV SITE WITH NO S/S INFILTRATION NOTED. BED LOCKED AND IN LOWEST POSITION. CALL LIGHT WITHIN REACH. HOB KEPT SLIGHTLY ELEVATED. ALL SAFETY MEASURES IN PLACE. WILL CONTINUE TO MONITOR PATIENT THROUGHOUT SHIFT.
[2022-08-28 08:00] VITALS: BP 122/63
[2022-08-28] MEDS: INSULIN REGULAR, HUMAN 100 UNIT/ML 3 ML VIAL SQ PRN (08:13)
[2022-08-28] MEDS: BLOOD SUGAR DIAGNOSTIC 1 EACH STRIP IN SCH ×2 (08:14→13:02)
[2022-08-28] MEDS: DEXILANT 60 MG PO SCH (08:19)
[2022-08-28] MEDS: DEXAMETHASONE SOD PHOSPHATE 10 MG/ML VIAL IV SCH (08:19)
[2022-08-28] MEDS: ATORVASTATIN 10 MG TABLET PO SCH (08:20)
[2022-08-28] MEDS: APIXABAN 2.5 MG TABLET PO SCH (08:21)
[2022-08-28] MEDS: glipiZIDE 5 MG TABLET PO SCH (08:21)
[2022-08-28] MEDS: SACUBITRIL/VALSARTAN 1 EACH TABLET PO SCH (08:24)
[2022-08-28] MEDS: IVABRADINE HCL PO SCH (08:24)
--- NOTE | 2022-08-28 09:35 | NUR ---
YARN DYER JAY CAME TO START HEMODIALYSIS ON THE PATIENT. PATIENT HAS NO C/O PAIN OR DISCOMFORT AT THIS TIME. ALL AM MEDS HELD AND TO BE GIVEN AFTER HIS DIALYSIS TREATMENT.
[2022-08-28] MEDS: CINACALCET HCL 30 MG TABLET PO SCH (10:08)
--- NOTE | 2022-08-28 10:19 | NUR ---
WAS INFORMED THAT THE GRANDDAUGHTER DERRELL IS OUT AT THE WINDOW. PLACED A CALL TO HER PER HER REQUEST @ AND DECLINED INSULIN SHOT FOR THE PATIENT. ALSO HAS QUESTIONS ABOUT THE PATIENT'S MEDICATIONS. NOTICED GRANDDAUGHTER WAS FILMING AND RECORDING THE CONVERSATION WITH THE NURSE AND INFORMED HER THAT THAT IS NOT ALLOWED AND STOPPED.
--- NOTE | 2022-08-28 10:33 | NUR ---
RECEIVED A CALL AGAIN FROM GRANDDAUGHTER BETO AND THIS TIME, THE NURSE HAD TO EXPLAIN TO HER EXTENSIVELY THE MEDICATIONS ORDERED FOR THE PATIENT ONE AT A TIME. TRIED TO EXPLAIN TO THE GRANDDAUGHTER THAT ALL MEDICATIONS WERE RECONCILED BEFORE, AND THE NURSE IS GREGORIO GIVING THE ONES THAT WERE ON HER LIST SHE HAD PREVIOUSLY PROVIDED BUT QUESTIONED ALL HER MEDICATIONS ONE AT A TIME. SPENT MORE THAN 20 MINUTES ON A CALL AND ALL QUESTIONS WERE ANSWERED.
[2022-08-28 12:00] VITALS: BP 102/60
[2022-08-28] MEDS ORDERED: NEPRO VAN 237 ML CAN PO PRN (12:00)
--- NOTE | 2022-08-28 12:15 | NUR ---
RECEIVED AN ORDER FOR DISCHARGE FOR THE PATIENT FROM DR. GOLDMAN. DISCHARGE PAPERWORK STARTED. PATIENT AND PATIENT'S GRANDDAUGHTER WERE BOTH INFORMED OF THE ORDER.
[2022-08-28] MEDS: ACETAMINOPHEN 325 MG TABLET PO PRN (12:27)
--- NOTE | 2022-08-28 12:35 | NUR ---
HEMODIALYSIS IS FINISHED, WAS ABLE TO REMOVE 1 LITER OF FLUID. PATIENT TOLERATED THE PROCEDURE WELL.
--- NOTE | 2022-08-28 13:20 | NUR ---
DISCHARGE PAPERWORK GIVEN TO THE DAUGHTER TO SIGN AND SAID THAT SHE WILL NEED TO REVIEW IT FIRST ONE AT A TIME BEFORE SIGNING. BELONGINGS LIST WERE REVIEWED WITH THE GRANDDAUGHTER DERRELL WELL AND SIGNED THE LIST. PATIENT REFUSED PHOTOS OF HIS ARMS UPON DISCHARGE.
--- NOTE | 2022-08-28 13:45 | NUR ---
TRIED TO GET THE PATIENT READY AND TO BE PLACED ON A WHEELCHAIR FOR D/C BUT GRANDDAUGHTER IS UPSET THAT THE DOCTOR HAS NOT SPOKEN TO HER ABOUT THE DISCHARGE PLAN. EXPLAINED TO HER THAT THE PATIENT IS ALREADY CLEARED FOR DISCHARGE AND THAT THERE IS AN ORDER WHAT WAS RELAYED TO HER PREVIOUSLY BUT NOW WANTED TO TALK TALK TO DR. GOLDMAN BEFORE HE LEAVES. NOTIFIED THE DOCTOR FOR HIS INFORMATION.
--- NOTE | 2022-08-28 14:25 | NUR ---
NOTED A MESSAGE FROM THE DOCTOR THAT DR GOLDMAN CALLED THE GRANDDAUGHTER ABOUT ALL THE ISSUES AND THE GRANDDAUGHTER HANG UP ON HIM WHEN THE DOCTOR ASKED HER TO EXPLAIN WHAT SHE WAS CONCERNED ABOUT. DR. GOLDMAN SAID THAT THE PATIENT IS STABLE TO GO. PATIENT WAS DISCHARGED HOME. [facility]LINE TAKEN OFF. LEFT VIA PRIVATE CAR WITH THE GRANDDAUGHTER VERONICA AND PATIENT LEFT IN NO ACUTE DISTRESS, NO RESPIRATORY PROBLEMS NOTED.
== END 2022-08-28 18:35 | disposition home or self-care (01) | DRG 280 ==
LOC: ER 20:31 → TELE1 08-23 01:07
PROVIDERS: ADMIT Internal Medicine; ATTEND Internal Medicine
PROC: 5A1D70Z Performance of Urinary Filtration, Intermittent, Less than 6 Hours Per Day (ICD-10-PCS; principal; 2022-08-23)
PROC: 05H533Z Insertion of Infusion Device into Right Subclavian Vein, Percutaneous Approach (ICD-10-PCS; 2022-08-26)
PROC: B546ZZA Ultrasonography of Right Subclavian Vein, Guidance (ICD-10-PCS; 2022-08-26)
DX: I13.2 Hypertensive heart and chronic kidney disease with heart failure and with stage 5 chronic kidney disease, or end stage renal disease (principal); E43 Unspecified severe protein-calorie malnutrition; I21.A1 Myocardial infarction type 2; G93.41 Metabolic encephalopathy; J12.82 Pneumonia due to coronavirus disease 2019; U07.1 COVID-19; N18.6 End stage renal disease; I50.23 Acute on chronic systolic (congestive) heart failure; J96.21 Acute and chronic respiratory failure with hypoxia; E87.1 Hypo-osmolality and hyponatremia; J98.11 Atelectasis; D68.69 Other thrombophilia; J90 Pleural effusion, not elsewhere classified; E11.22 Type 2 diabetes mellitus with diabetic chronic kidney disease; E11.51 Type 2 diabetes mellitus with diabetic peripheral angiopathy without gangrene; D69.6 Thrombocytopenia, unspecified; E83.51 Hypocalcemia; E87.5 Hyperkalemia; I25.10 Atherosclerotic heart disease of native coronary artery without angina pectoris; I48.91 Unspecified atrial fibrillation; M89.8X9 Other specified disorders of bone, unspecified site; Z99.2 Dependence on renal dialysis; Z86.73 Personal history of transient ischemic attack (TIA), and cerebral infarction without residual deficits; Z95.0 Presence of cardiac pacemaker; Z79.01 Long term (current) use of anticoagulants; E88.09 Other disorders of plasma-protein metabolism, not elsewhere classified; Z68.27 Body mass index [BMI] 27.0-27.9, adult; E11.649 Type 2 diabetes mellitus with hypoglycemia without coma
CPT/HCPCS: 36415; 70450-TC; 71045-TC; 80048-TC; 80053-TC; 80076-TC; 82140-TC; 82533; 82962-TC; 83605-TC; 83735-TC; 83880; 84100-TC; 84443-TC; 84484-TC; 85025-TC; 85730-TC; 86140-TC; 86706; 87040-TC; 87081-TC; 87340; 90935-TC; 93307-TC; 94799-TC; A4216; A6253; A6403; C9803; G0378; G0480; J0692; J1100; J1815; J1940; J2405; J3490; J7030; J7050; J7060; P9047; U0003